=== PATIENT | female | born 1975 | race Caucasian/White ===

== ENCOUNTER 2018-11-14 13:41 | Outpatient (REF) | payer OTHER, SELFPAY ==
[2018-11-14 20:15] LABS: Anion Gap 9.5 mmol/L (3-11); BUN 14 mg/dL (7-18); CO2 25.5 mmol/L (21.0-32.0); CREATININE 0.91 mg/dL (0.55-1.02); Calcium 9.6 mg/dL (8.5-10.1); Chloride 102 mmol/L (98-107); Glucose 96 mg/dL (70-100); Sodium 137 mmol/L (136-145)
== END 2018-11-14 14:01 ==
LOC: NCHCN 13:41
PROVIDERS: PCP Internal Medicine; Visit Provider Internal Medicine
DX: E03.9 Hypothyroidism, unspecified (principal); G47.00 Insomnia, unspecified; E66.9 Obesity, unspecified
CPT/HCPCS: 80048; 84443

== ENCOUNTER 2019-10-29 18:25 | Outpatient (REF) | payer OTHER, SELFPAY ==
[2019-10-29 20:07] LABS: Anion Gap 9.5 mmol/L (3-11); BUN 14 mg/dL (7-18); CO2 26.5 mmol/L (21.0-32.0); CREATININE 0.86 mg/dL (0.55-1.02); Calcium 8.9 mg/dL (8.5-10.1); Chloride 106 mmol/L (98-107); Glucose 98 mg/dL (74-106); Sodium 142 mmol/L (136-145); TSH 4.12 uIU/mL (0.36-3.74)
== END 2019-10-29 18:45 ==
LOC: NCHCN 18:25
PROVIDERS: PCP Internal Medicine; Visit Provider Internal Medicine
DX: I10 Essential (primary) hypertension (principal); E03.9 Hypothyroidism, unspecified; F41.1 Generalized anxiety disorder
CPT/HCPCS: 80048; 84443

== ENCOUNTER 2020-05-04 18:11 | Outpatient (REF) | payer OTHER, SELFPAY ==
[2020-05-04 21:09] LABS: FREE T4 1.22 ng/dL (0.76-1.46)
== END 2020-05-04 18:31 ==
LOC: NCHCN 18:11
PROVIDERS: PCP Internal Medicine; Visit Provider Internal Medicine
DX: I10 Essential (primary) hypertension (principal); E04.2 Nontoxic multinodular goiter
CPT/HCPCS: 84439; 84443

== ENCOUNTER 2020-11-02 19:03 | Outpatient (REF) | payer OTHER, SELFPAY ==
[2020-11-02 21:42] LABS: Anion Gap 10.6 mmol/L (3-11); BUN 13 mg/dL (7-18); CO2 25.4 mmol/L (21.0-32.0); Calcium 10.3 mg/dL (8.5-10.1); Chloride 102 mmol/L (98-107); Estimated GFR 59.96 (mL/min/1.73m2); Glucose 98 mg/dL (74-106); Potassium 3.8 mmol/L (3.5-5.1); Sodium 138 mmol/L (136-145); TSH 2.74 uIU/mL (0.36-3.74)
== END 2020-11-02 19:04 | disposition home or self-care (01) ==
LOC: NCHCN 19:03
PROVIDERS: PCP Internal Medicine; Visit Provider Internal Medicine
DX: I10 Essential (primary) hypertension (principal); E06.3 Autoimmune thyroiditis; E66.9 Obesity, unspecified
CPT/HCPCS: 80048; 84443

== ENCOUNTER 2021-11-02 19:47 | Outpatient (REF) | payer OTHER, SELFPAY ==
[2021-11-02 22:08] LABS: Anion Gap 12.5 mmol/L (3-11); BUN 14 mg/dL (7-18); CO2 24.5 mmol/L (21.0-32.0); Calcium 9.6 mg/dL (8.5-10.1); Calculated LDL 110 mg/dL (<100); Chloride 100 mmol/L (98-107); Cholesterol 215 mg/dL (<200); Estimated GFR 59.69 (mL/min/1.73m2); Glucose 89 mg/dL (74-106); HDL Cholesterol 76 mg/dL (40-60); Potassium 3.9 mmol/L (3.5-5.1); Sodium 137 mmol/L (136-145); TSH 4.34 uIU/mL (0.36-3.74); Triglyceride 149 mg/dL (<150)
[2021-11-02 22:26] LABS: FREE T4 1.01 ng/dL (0.76-1.46)
== END 2021-11-02 19:48 | disposition home or self-care (01) ==
LOC: NCHCN 19:47
PROVIDERS: PCP Internal Medicine; Visit Provider Internal Medicine
DX: I10 Essential (primary) hypertension (principal); E66.9 Obesity, unspecified; F41.1 Generalized anxiety disorder
CPT/HCPCS: 80048; 80061; 84439; 84443

== ENCOUNTER 2023-02-22 11:47 | Outpatient (REF) | payer OTHER, SELFPAY ==
--- NOTE | 2023-02-22 11:00 | SKI_PTH ---
PATIENT: Harley Vallejo LOC: [facility]#:[id number] AGE/SX: 47/F ROOM: RE02/22/[address]: Glen Hidalgo : 1975 BED: DIS: 02/22/2023 SPEC #: [id number] RECD: 02/25/23 12:24 STATUS: LOIS HEAD #: [id number] ANNA: 02/22/23 11:[address]: Glen Hidalgo DEPT: Surgical Specimen RECD BY: Emily Flanagan Tissues: 1 - SKIN BIOPSY(SHAVE/PUNCH) Procedures: IMMUNOPEROXIDASE STAIN SKIN LEVEL 4 MIB-1 IHC Semi Quantative % Comments: [id number]
== END 2023-02-22 11:48 | disposition home or self-care (01) ==
LOC: NCHCN 11:47
PROVIDERS: PCP Internal Medicine; Visit Provider Internal Medicine
DX: C44.711 Basal cell carcinoma of skin of unspecified lower limb, including hip (principal); D22.71 Melanocytic nevi of right lower limb, including hip
CPT/HCPCS: 88360; 88305; 88361

== ENCOUNTER 2023-08-28 13:38 | Outpatient (REF) | payer BC, SELFPAY ==
[2023-08-28 21:27] LABS: Anion Gap 10.5 mmol/L (3-11); BUN 13 mg/dL (7-18); CO2 24.5 mmol/L (21.0-32.0); CREATININE 0.9 mg/dL (0.55-1.02); Calcium 9.5 mg/dL (8.5-10.1); Chloride 102 mmol/L (98-107); Estimated GFR 79.35 (mL/min/1.73m2); FREE T4 1.36 ng/dL (0.76-1.46); Glucose 106 mg/dL (74-106); Potassium 3.8 mmol/L (3.5-5.1); Sodium 137 mmol/L (136-145); TSH 3.49 uIU/mL (0.36-3.74)
[2023-08-28 21:46] LABS: Hemoglobin A1C 5.5 % (<5.7)
== END 2023-08-28 13:39 | disposition home or self-care (01) ==
LOC: NCHCN 13:38
PROVIDERS: PCP Internal Medicine; Visit Provider Internal Medicine
DX: I10 Essential (primary) hypertension (principal); E03.9 Hypothyroidism, unspecified; G47.30 Sleep apnea, unspecified; Z13.1 Encounter for screening for diabetes mellitus
CPT/HCPCS: 80048; 83036; 84439; 84443

== ENCOUNTER 2024-07-23 15:25 | Outpatient (REF) | payer BC, SELFPAY ==
[2024-07-23 20:03] LABS: Hemoglobin A1C 5.5 % (<5.7)
[2024-07-23 20:06] LABS: TSH 6.88 uIU/mL (0.36-3.74)
== END 2024-07-23 15:26 | disposition home or self-care (01) ==
LOC: NCHCN 15:25
PROVIDERS: PCP Internal Medicine; Visit Provider Internal Medicine
DX: E66.9 Obesity, unspecified (principal); E03.9 Hypothyroidism, unspecified
CPT/HCPCS: 83036; 84443

== ENCOUNTER 2024-12-09 17:22 | Outpatient (REF) | payer BC, SELFPAY | END 2024-12-09 17:23 | disposition home or self-care (01) | LOC: NCHCN 17:22 | PROVIDERS: PCP Internal Medicine; Visit Provider Internal Medicine | DX: E03.9 Hypothyroidism, unspecified (principal) | CPT/HCPCS: 84443 ==

== ENCOUNTER 2025-01-22 12:45 | Outpatient (REF) | payer BC, SELFPAY ==
[2025-01-22 19:42] LABS: Anion Gap 11.1 mmol/L (3-11); BUN 14 mg/dL (7-18); CO2 23.9 mmol/L (21.0-32.0); Calcium 9.7 mg/dL (8.5-10.1); Calculated LDL 115 mg/dL (<100); Chloride 102 mmol/L (98-107); Cholesterol 198 mg/dL (<200); Estimated GFR 69.06 (mL/min/1.73m2); Glucose 108 mg/dL (74-106); HDL Cholesterol 65 mg/dL (>or=50); Potassium 4.1 mmol/L (3.5-5.1); Sodium 137 mmol/L (136-145); Triglyceride 91 mg/dL (<150)
== END 2025-01-22 12:46 | disposition home or self-care (01) ==
LOC: NCHCN 12:45
PROVIDERS: PCP Internal Medicine; Visit Provider Internal Medicine
DX: I10 Essential (primary) hypertension (principal)
CPT/HCPCS: 80048; 80061